=== PATIENT | female | born 1960 | race Caucasian/White ===

== ENCOUNTER → 2017-01-22 | Outpatient (CLI) | payer BC ==
--- NOTE | 2017-01-23 10:20 | MM ---
Reason for exam: screening (asymptomatic). Last mammogram was performed 1 year and 2 months ago. History: Patient has history of other cancer at age 35. Family history of breast cancer in grandmother. Benign US left CoreBiopsy of the left breast, January 31, 2007. Physical Findings: A clinical breast exam by your physician is recommended on an annual basis and results should be correlated with mammographic findings. MG Screening Mammo w CAD Bilateral CC and MLO view(s) were taken. Prior study comparison: November 09, 2015, bilateral MG screening mammo w CAD. April 08, 2008, bilateral diagnostic digital mammog. The breast tissue is heterogeneously dense. This may lower the sensitivity of mammography. There is chronic nodularity in the right breast. No significant changes when compared with prior studies. ASSESSMENT: Benign, BI-RAD 2 RECOMMENDATION: Routine screening mammogram of both breasts in 1 year.
== END | disposition home or self-care (01) ==
LOC: RADMAMWWP 08:43
PROVIDERS: ATTEND Family Medicine
DX: Z12.31 Encounter for screening mammogram for malignant neoplasm of breast (principal)

== ENCOUNTER → 2018-01-29 | Outpatient (CLI) | payer BC ==
--- NOTE | 2018-01-30 10:44 | MM ---
Reason for exam: screening (asymptomatic). Last mammogram was performed 1 year ago. History: Patient has history of other cancer at age 35. Family history of breast cancer in grandmother. Benign US left CoreBiopsy of the left breast, January 31, 2007. Physical Findings: A clinical breast exam by your physician is recommended on an annual basis and results should be correlated with mammographic findings. MG Screening Mammo w CAD Bilateral CC and MLO view(s) were taken. Prior study comparison: January 22, 2017, bilateral MG screening mammo w CAD. November 09, 2015, bilateral MG screening mammo w CAD. The breast tissue is heterogeneously dense. This may lower the sensitivity of mammography. Previous mammotome biopsy in the left breast. No significant changes when compared with prior studies. ASSESSMENT: Benign, BI-RAD 2 RECOMMENDATION: Routine screening mammogram of both breasts in 1 year.
== END | disposition home or self-care (01) ==
LOC: RADMAMWWP 14:45
PROVIDERS: ATTEND Family Medicine
DX: Z12.31 Encounter for screening mammogram for malignant neoplasm of breast (principal)
CPT/HCPCS: 77067

== ENCOUNTER → 2019-02-04 | Outpatient (CLI) | payer BC ==
--- NOTE | 2019-02-04 09:42 | MM ---
Reason for exam: screening (asymptomatic). Last mammogram was performed 1 year ago. History: Patient has history of other cancer at age 35. Family history of breast cancer in grandmother. Benign US left CoreBiopsy of the left breast, January 31, 2007. Physical Findings: A clinical breast exam by your physician is recommended on an annual basis and results should be correlated with mammographic findings. MG Screening Mammo w CAD Bilateral CC and MLO view(s) were taken. Prior study comparison: January 29, 2018, bilateral MG screening mammo w CAD. January 22, 2017, bilateral MG screening mammo w CAD. The breast tissue is heterogeneously dense. This may lower the sensitivity of mammography. Previous mammotome biopsy in the left breast. There is no discrete abnormality. ASSESSMENT: Benign, BI-RAD 2 RECOMMENDATION: Routine screening mammogram of both breasts in 1 year.
--- NOTE | 2019-02-04 11:58 | BD ---
EXAMINATION TYPE: Axial Bone Density DATE OF EXAM: 02/04/2019 COMPARISON: NONE CLINICAL HISTORY: Screening for osteoporosis Height: 64.5 Weight: 165.4 FRAX RISK QUESTIONS: Alcohol (3 or more units per day): no Family History (Parent hip fracture): no Glucocorticoids (More than 3mos): no (Ex: prednisone, prednisolone, methylprednisolone, dexamethasone, and hydrocortisone). History of Fracture in Adulthood: yes Secondary Osteoporosis: 1. Type 1 Diabetes: no 2. Hyperthyroidism: no 3. Menopause before 45: no 4. Malnutrition: no 5. Chronic liver disease: no Rheumatoid Arthritis: no Current Tobacco Use: no RISK FACTORS HISTORY OF: Family History of Osteoporosis: yes - mother Active: sometimes Diet low in dairy products/other sources of calcium: yes Postmenopausal woman: age 46 MEDICATIONS: omeprazole, amlodipine, vitamins Additional History: EXAM MEASUREMENTS: Bone mineral densitometry was performed using the [employer] System. Bone mineral density as measured about the Lumbar spine is: ----- L1-L4(G/cm2): 0.992 T Score Values are as follows: ----- L2: -1.9 ----- L3: -1.1 ----- L4: -1.4 ----- L1-L4: -1.6 Bone mineral density : baseline Bone mineral density about the R hip (g/cm2): 0.816 Bone mineral density about the L hip (g/cm2): 0.752 T Score values are as follows: -----R Neck: -1.6 -----L Neck: -2.1 -----R Total: -1.3 -----L Total: -1.7 Bone mineral density : baseline IMPRESSION: Osteopenia (T Score between -2.5 and -1). There is slightly increased risk of fracture and the patient may be considered for treatment. Re-Screen 2-5 years. NOTE: T-SCORE=SD OF THE YOUNG ADULT MEAN.
== END | disposition home or self-care (01) ==
LOC: RADMAMWWP 06:50
PROVIDERS: ATTEND Family Medicine
DX: Z12.31 Encounter for screening mammogram for malignant neoplasm of breast (principal); M85.88 Other specified disorders of bone density and structure, other site
CPT/HCPCS: 77067; 77080

== ENCOUNTER 2019-06-25 16:18 | Observation (INO) | payer BC ==
[2019-06-25] MEDS ORDERED: ONDANSETRON 4 MG/2 ML VIAL IVP STA (16:52)
[2019-06-25] MEDS ORDERED: SODIUM CHLORIDE 0.9% 500 ML 500 ML IV STA (16:52)
[2019-06-25] MEDS ORDERED: SODIUM CHLORIDE 0.9% 1,000 ML IV STA ×2 (16:52)
[2019-06-25] MEDS ORDERED: PANTOPRAZOLE 40 MG/10 ML VIAL IVP STA (16:54)
--- NOTE | 2019-06-25 16:58 | ED ---
Nausea/Vomiting/Diarrhea HPI - General Chief complaint: Nausea/Vomiting/Diarrhea Stated complaint: Vomiting, fatigue Time Seen by Provider: 06/25/19 16:26 Source: patient, RN notes reviewed, old records reviewed Mode of arrival: ambulatory Limitations: no limitations - History of Present Illness Initial comments: This is a 59-year-old female the ER for evaluation patient resents today for evaluation regards to nausea vomiting abdominal pain and diarrhea. Significant persistent diarrhea without blood. She has no fevers and chills but no documented fever. Patient is 5 days returned from a 12 day trip to [place]. She did go through [facility] travel shots as well as probiotics on her travel itinerary. She never took antibiotics. Noted also trip to get sick. Otherwise patient has no complaints. MD complaint: nausea, vomiting, diarrhea, abdominal pain, other (Recent travel history to [place]) -: days(s) (5) Description of Vomiting: food contents, watery Description of Diarrhea: water Associated Abdominal Pain: Yes Location: diffuse Severity: mild Severity scale (1-10): 3 Quality: cramping Consistency: colicky Improves with: none Worsens with: none Context: foreign travel Associated Symptoms: fever/chills, loss of appetite, malaise, nausea/vomiting, weakness - Related Data Home Medications Medication Instructions Recorded Confirmed Calcium Carbonate [Tums] 1,000 mg PO TID PRN 12/15/15 06/25/19 L.acidoph,Paracasei, B.lactis 1 cap PO TID 12/15/15 06/25/19 [Probiotic] Cholecalciferol [Vitamin D3 (25 1,000 unit PO DAILY 06/25/19 06/25/19 Mcg = 1000 Iu)] Krill Oil 500 mg PO DAILY 06/25/19 06/25/19 Magnesium 200 mg PO DAILY 06/25/19 06/25/19 Niacin 500 mg PO DAILY 06/25/19 06/25/19 Omeprazole 20 mg PO DAILY 06/25/19 06/25/19 Phytonadione [Vitamin K] 5 mg PO DAILY 06/25/19 06/25/19 Ubidecarenone [Co Q-10] 100 mg PO DAILY 06/25/19 06/25/19 Vitamin B Complex 1 cap PO DAILY 06/25/19 06/25/19 amLODIPine BESYLATE [Norvasc] 2.5 mg PO DAILY 06/25/19 06/25/19 Allergies Allergy/AdvReac Type Severity Reaction Status Date / Time No Known Allergies Allergy Verified 06/25/19 17:18 Review of Systems ROS Statement: Those systems with pertinent positive or pertinent negative responses have been documented in the HPI. ROS Other: All systems not noted in ROS Statement are negative. Past Medical History Past Medical History: Hypertension Additional Past Medical History / Comment(s): melanoma 20yrs ago, History of Any Multi-Drug Resistant Organisms: None Reported Past Surgical History: Bladder Surgery, Cholecystectomy, Hysterectomy Additional Past Surgical History / Comment(s): Left ooperectomy, partial hyst. Past Anesthesia/Blood Transfusion Reactions: No Reported Reaction Past Psychological History: No Psychological Hx Reported Smoking Status: Former smoker Past Alcohol Use History: None Reported Past Drug Use History: None Reported - Past Family History Mother Family Medical History: COPD Father Family Medical History: Myocardial Infarction (NH) General Exam Limitations: no limitations General appearance: alert, in no apparent distress Head exam: Present: atraumatic, normocephalic, normal inspection Eye exam: Present: normal appearance, EOMI. Absent: scleral icterus, conjunctival injection, periorbital swelling ENT exam: Present: normal exam, mucous membranes moist Neck exam: Present: normal inspection. Absent: tenderness, meningismus, lymphadenopathy Respiratory exam: Present: normal lung sounds bilaterally. Absent: respiratory distress, wheezes, rales, rhonchi, stridor Cardiovascular Exam: Present: regular rate, normal rhythm, normal heart sounds. Absent: systolic murmur, diastolic murmur, rubs, gallop, clicks GI/Abdominal exam: Present: soft, normal bowel sounds. Absent: distended, tenderness, guarding, rebound, rigid Extremities exam: Present: normal inspection, full ROM, normal capillary refill. Absent: tenderness, pedal edema, joint swelling, calf tenderness Back exam: Present: normal inspection Neurological exam: Present: alert, oriented X3, CN II-XII intact Psychiatric exam: Present: normal affect, normal mood Skin exam: Present: warm, dry, intact, normal color. Absent: rash Course Vital Signs 06/25/19 16:21 Temperature 98.3 F Pulse Rate 84 Respiratory 20 Rate Blood Pressure 149/96 O2 Sat by Pulse 99 Oximetry - Reevaluation(s) Reevaluation #1: 06/25/19 16:58 Medical records reviewed Reevaluation #2: 06/25/19 20:17 A she is mildly symptomatically improved - Consultations Consultation #1: hugo with EM media consultant, agreed for admission Medical Decision Making - Medical Decision Making 89 female the ER with persistent nausea vomiting diarrhea after treatment. Patient will be admitted for hydration and symptom management treatment of urinary tract infection - Lab Data Result diagrams: 06/25/19 17:10 06/25/19 17:10 Lab Results 06/25/19 06/25/19 06/25/19 Range/Units 17:10 17:10 17:10 WBC 10.4 (3.8-10.6) k/uL RBC 6.01 H (3.80-5.40) m/uL Hgb 18.6 H (11.4-16.0) gm/dL Hct 52.0 H (34.0-46.0) % MCV 86.5 (80.0-100.0) fL MCH 30.9 (25.0-35.0) pg MCHC 35.7 (31.0-37.0) g/dL RDW 12.6 (11.5-15.5) % Plt Count 289 (150-450) k/uL Neutrophils % 63 % Lymphocytes % 17 % Monocytes % 11 % Eosinophils % 1 % Basophils % 2 % Neutrophils # 6.6 (1.3-7.7) k/uL Lymphocytes # 1.8 (1.0-4.8) k/uL Monocytes # 1.1 H (0-1.0) k/uL Eosinophils # 0.1 (0-0.7) k/uL Basophils # 0.2 (0-0.2) k/uL ESR 47 H (0-20) mm/hr Sodium 136 L (137-145) mmol/L Potassium 3.8 (3.5-5.1) mmol/L Chloride 96 L (98-107) mmol/L Carbon Dioxide 19 L (22-30) mmol/L Anion Gap 21 mmol/L BUN 20 H (7-17) mg/dL Creatinine 0.57 (0.52-1.04) mg/dL Est GFR (CKD-EPI)AfAm >90 (>60 ml/min/1.73 sqM) Est GFR (CKD-EPI)NonAf >90 (>60 ml/min/1.73 sqM) Glucose 119 H (74-99) mg/dL Plasma Lactic Acid Herve 1.2 (0.7-2.0) mmol/L Calcium 11.8 H (8.4-10.2) mg/dL Phosphorus 4.0 (2.5-4.5) mg/dL Magnesium 2.1 (1.6-2.3) mg/dL Total Bilirubin 1.6 H (0.2-1.3) mg/dL AST 38 H (14-36) U/L ALT 41 (9-52) U/L Alkaline Phosphatase 97 (38-126) U/L Lactate Dehydrogenase 675 H (313-618) U/L Creatine Kinase 68 (30-135) U/L C-Reactive Protein 40.0 H (<10.0) mg/L Total Protein 9.0 H (6.3-8.2) g/dL Albumin 4.9 (3.5-5.0) g/dL Urine Color Urine Appearance (Clear) Urine pH (5.0-8.0) Ur Specific [place] (1.001-1.035) Urine Protein (Negative) Urine Glucose (UA) (Negative) Urine Ketones (Negative) Urine Blood (Negative) Urine Nitrite (Negative) Urine Bilirubin (Negative) Urine Urobilinogen (<2.0) mg/dL Ur Leukocyte Esterase (Negative) Urine RBC (0-5) /hpf Urine WBC (0-5) /hpf Ur Squamous Epith Cells (0-4) /hpf Amorphous Sediment (None) /hpf Urine Bacteria (None) /hpf Hyaline Casts (0-2) /lpf Urine Mucus (None) /hpf C. difficile (EIA) Intrp (Negative) 06/25/19 06/25/19 Range/Units 17:58 17:58 WBC (3.8-10.6) k/uL RBC (3.80-5.40) m/uL Hgb (11.4-16.0) gm/dL Hct (34.0-46.0) % MCV (80.0-100.0) fL MCH (25.0-35.0) pg MCHC (31.0-37.0) g/dL RDW (11.5-15.5) % Plt Count (150-450) k/uL Neutrophils % % Lymphocytes % % Monocytes % % Eosinophils % % Basophils % % Neutrophils # (1.3-7.7) k/uL Lymphocytes # (1.0-4.8) k/uL Monocytes # (0-1.0) k/uL Eosinophils # (0-0.7) k/uL Basophils # (0-0.2) k/uL ESR (0-20) mm/hr Sodium (137-145) mmol/L Potassium (3.5-5.1) mmol/L Chloride (98-107) mmol/L Carbon Dioxide (22-30) mmol/L Anion Gap mmol/L BUN (7-17) mg/dL Creatinine (0.52-1.04) mg/dL Est GFR (CKD-EPI)AfAm (>60 ml/min/1.73 sqM) Est GFR (CKD-EPI)NonAf (>60 ml/min/1.73 sqM) Glucose (74-99) mg/dL Plasma Lactic Acid Herve (0.7-2.0) mmol/L Calcium (8.4-10.2) mg/dL Phosphorus (2.5-4.5) mg/dL Magnesium (1.6-2.3) mg/dL Total Bilirubin (0.2-1.3) mg/dL AST (14-36) U/L ALT (9-52) U/L Alkaline Phosphatase (38-126) U/L Lactate Dehydrogenase (313-618) U/L Creatine Kinase (30-135) U/L C-Reactive Protein (<10.0) mg/L Total Protein (6.3-8.2) g/dL Albumin (3.5-5.0) g/dL Urine Color Yellow Urine Appearance Cloudy H (Clear) Urine pH 6.5 (5.0-8.0) Ur Specific [place] 1.014 (1.001-1.035) Urine Protein Trace H (Negative) Urine Glucose (UA) Negative (Negative) Urine Ketones 3+ H (Negative) Urine Blood Trace H (Negative) Urine Nitrite Negative (Negative) Urine Bilirubin Negative (Negative) Urine Urobilinogen <2.0 (<2.0) mg/dL Ur Leukocyte Esterase Large H (Negative) Urine RBC 5 (0-5) /hpf Urine WBC 53 H (0-5) /hpf Ur Squamous Epith Cells 7 H (0-4) /hpf Amorphous Sediment Rare H (None) /hpf Urine Bacteria Moderate H (None) /hpf Hyaline Casts 3 H (0-2) /lpf Urine Mucus Rare H (None) /hpf C. difficile (EIA) Intrp Negative (Negative) - Radiology Data Radiology results: report reviewed (CT head and pelvis is negative for acute disease), image reviewed Disposition Clinical Impression: Urinary tract infection, Dehydration, Gastroenteritis Disposition: ADMITTED IP TO THIS [facility] Condition: Undetermined Is patient prescribed a controlled substance at d/c from ED?: No Referrals: Levi Stovall III, MD [Primary Care Provider] - 1-2 days
[2019-06-25 17:46] LABS: ALT 41 U/L (9-52); AST 38 U/L (14-36); African American GFR (CKD) >90 (>60 ml/min/1.73 sqM); Albumin 4.9 g/dL (3.5-5.0); Alkaline Phosphatase 97 U/L (38-126); Anion Gap 21 mmol/L; Blood Urea Nitrogen 20 mg/dL (7-17); Calcium 11.8 mg/dL (8.4-10.2); Carbon Dioxide 19 mmol/L (22-30); Chloride 96 mmol/L (98-107); Creatine Kinase 68 U/L (30-135); Glucose 119 mg/dL (74-99); LDH 675 U/L (313-618); Magnesium 2.1 mg/dL (1.6-2.3); Potassium 3.8 mmol/L (3.5-5.1); Sodium 136 mmol/L (137-145); Total Bilirubin 1.6 mg/dL (0.2-1.3)
[2019-06-25 18:15] LABS: Basophils # (A) 0.2 k/uL (0-0.2); Basophils % (A) 2 %; Eosinophils # (A) 0.1 k/uL (0-0.7); Eosinophils % (A) 1 %; HGB 18.6 gm/dL (11.4-16.0); Lymphocytes # (A) 1.8 k/uL (1.0-4.8); Lymphocytes % (A) 17 %; MCH 30.9 pg (25.0-35.0); MCHC 35.7 g/dL (31.0-37.0); MCV 86.5 fL (80.0-100.0); Mean Platelet Volume 8.5; Monocytes # (A) 1.1 k/uL (0-1.0); Monocytes % (A) 11 %; Neutrophils # (A) 6.6 k/uL (1.3-7.7); Neutrophils % (A) 63 %; Platelet Count 289 k/uL (150-450); RBC 6.01 m/uL (3.80-5.40); RDW 12.6 % (11.5-15.5); WBC 10.4 k/uL (3.8-10.6)
[2019-06-25 18:34] LABS: Amorphous Sediment,Urine Rare /hpf; Appearance,Urine Cloudy (Clear); Bacteria,Urine Moderate /hpf; Bilirubin,Urine Negative (Negative); Blood,Urine Trace (Negative); Color,Urine Yellow; Glucose,Urine (UA) Negative (Negative); Hyaline Casts,Urine 3 /lpf (0-2); Ketones,Urine 3+ (Negative); Leukocyte Esterase,Urine Large (Negative); Mucus,Urine Rare /hpf; Nitrite,Urine Negative (Negative); PH, Urine 6.5 (5.0-8.0); Protein,Urine Trace (Negative); RBC,Urine 5 /hpf (0-5); Specific Gravity,Urine 1.014 (1.001-1.035); Squamous Epithelial Cell,Urine 7 /hpf (0-4); Urobilinogen,Urine <2.0 mg/dL (<2.0); WBC,Urine 53 /hpf (0-5)
[2019-06-25 18:54] LABS: Erythrocyte Sedimentation Rate 47 mm/hr (0-20)
[2019-06-25] MEDS: SODIUM CHLORIDE 0.9% 1,000 ML IV SCH (20:43)
[2019-06-25] MEDS: SODIUM CHLORIDE 0.9% 500 ML 500 ML IV SCH (20:44)
[2019-06-25 21:32] VITALS: BMI 28.3
[2019-06-26] MEDS: SODIUM CHLORIDE 0.9% 500 ML 500 ML IV SCH ×2 (01:29→05:53)
[2019-06-26] MEDS: SODIUM CHLORIDE 0.9% 1,000 ML IV SCH ×3 (05:53→20:54)
--- NOTE | 2019-06-26 08:53 | P.CONS ---
History of Present Illness - Reason for Consult Consult date: 06/26/19 Nausea vomiting diarrhea - History of Present Illness This is a 59-year-old female who gives history of traveling to [place] for 12 day trip and has been back for the past 6 days. On her travel returning home, she started feeling ill. She complains of fatigue, cold sweats, may be some fever at the beginning but resolved. She complains of nausea and diarrhea without blood. No abdominal pain. She states she traveled with the group and one other person had upper respiratory symptoms but no one else with her type of symptoms. She does complain of a little burning with urination yesterday but none now. She complains of decreased appetite and this morning she ate her first real meal. She complains of her skin feeling sore. Since transfer to her room on the fourth floor, patient has had 4 watery stools that are yellow in color. Patient came into [facility] emergency center for eval uation. She was found to be afebrile, WBC 10.4, CO2 19, BUN 20, creatinine 0.57. Lactic acid 1.2, CRP 40, albumin 4.9, LDH 675. AST 38. C. difficile toxin negative. Urinalysis was leukoesterase large, WBC 53, bacteria moderate. Stool culture blood culture and malaria testing were sent from the emergency center. CAT scan of the abdomen and pelvis with contrast has been obtained but report is currently pending. In the emergency center, patient received 2 L of IV fluid, Zofran and Protonix. Review of Systems Constitutional: Reports anorexia, Reports chills, Reports fatigue, Reports fever, Reports lethargy, Reports malaise, Reports poor appetite, Reports weakness Eyes: denies blurred vision, denies pain Ears, nose, mouth and throat: Denies dental pain, Denies mouth pain, Denies nasal congestion, Denies nasal discharge, Denies vertigo Cardiovascular: Denies chest pain, Denies decreased exercise tolerance, Denies dyspnea on exertion, Denies edema, Denies leg edema, Denies lightheadedness, Denies shortness of breath, Denies syncope Respiratory: Denies congestion, Denies cough, Denies cough with sputum, Denies dyspnea, Denies excessive sputum, Denies hemoptysis, Denies home oxygen, Denies wheezing Gastrointestinal: Reports change in bowel habits, Reports diarrhea, Reports loss of appetite, Reports nausea, Denies abdominal pain, Denies vomiting Genitourinary: Reports dysuria, Denies hematuria Musculoskeletal: Denies muscle weakness, Denies myalgias Integumentary: Denies pruritus, Denies rash, Denies wounds Neurological: Denies change in mentation, Denies change in speech, Denies numbness, Denies weakness Psychiatric: Denies anxiety, Denies depression Endocrine: Denies fatigue, Denies weight change Past Medical History Past Medical History: Hypertension Additional Past Medical History / Comment(s): melanoma 25yrs ago status post resection History of Any Multi-Drug Resistant Organisms: None Reported Past Surgical History: Bladder Surgery, Cholecystectomy, Hysterectomy Additional Past Surgical History / Comment(s): Left ooperectomy, partial hyst orvarian cyst removed when 17 years old Past Anesthesia/Blood Transfusion Reactions: No Reported Reaction Past Psychological History: No Psychological Hx Reported Smoking Status: Former smoker Past Alcohol Use History: None Reported Additional Past Alcohol Use History / Comment(s): Patient was a smoker for brief period only and quit 25 years ago. No marijuana, illicit drug use, alcohol use. She lives at home with her . No pets. 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 The last time was in October. She also enjoys the beach. Past Drug Use History: None Reported - Past Family History Mother Family Medical History: COPD Father Family Medical History: Myocardial Infarction ([place]) Medications and Allergies Home Medications Medication Instructions Recorded Confirmed Type Calcium Carbonate [Tums] 1,000 mg PO TID PRN 12/15/15 06/25/19 History L.acidoph,Paracasei, B.lactis 1 cap PO TID 12/15/15 06/25/19 History [Probiotic] Cholecalciferol [Vitamin D3 (25 1,000 unit PO DAILY 06/25/19 06/25/19 History Mcg = 1000 Iu)] Krill Oil 500 mg PO DAILY 06/25/19 06/25/19 History Magnesium 200 mg PO DAILY 06/25/19 06/25/19 History Niacin 500 mg PO DAILY 06/25/19 06/25/19 History Omeprazole 20 mg PO DAILY 06/25/19 06/25/19 History Phytonadione [Vitamin K] 5 mg PO DAILY 06/25/19 06/25/19 History Ubidecarenone [Co Q-10] 100 mg PO DAILY 06/25/19 06/25/19 History Vitamin B Complex 1 cap PO DAILY 06/25/19 06/25/19 History amLODIPine BESYLATE [Norvasc] 2.5 mg PO DAILY 06/25/19 06/25/19 History Allergies Allergy/AdvReac Type Severity Reaction Status Date / Time No Known Allergies Allergy Verified 06/25/19 17:18 Physical Exam Vitals: Vital Signs Temp Pulse Pulse Resp BP BP Pulse Ox 06/26/19 07:29 98.1 F 56 L 16 111/71 98 06/25/19 22:00 97.5 F L 66 16 116/76 100 06/25/19 21:07 74 18 134/94 96 06/25/19 16:21 98.3 F 84 20 149/96 99 Intake and Output 06/25/19 06/26/19 06/26/19 22:59 06:59 14:59 Other: # Voids 1 2 Weight 74.843 kg Gen: This is a 59-year-old female. Patient is resting in bed and appears to be comfortable and in no acute distress. HEENT: Head is atraumatic, normocephalic. Pupils equal, round. Sclerae is anicteric. Oral mucous membranes are moist. No thrush noted. Dentition is in good order. No oral pharyngeal edema or erythema. NECK: Supple. No JVD. No lymphadenopathy. No thyromegaly. LUNGS: Clear to auscultation. No wheezes or rhonchi. No intercostal retractions. HEART: Regular rate and rhythm. No murmur. ABDOMEN: Soft. Bowel sounds are present. No masses. No tenderness. EXTREMITIES: No pedal edema. No calf tenderness. Dorsalis pedis +2 bilaterally. NEUROLOGICAL: Patient is awake, alert and oriented x3. Cranial nerves 2 through 12 are grossly intact. Results Results: Laboratory Results WBC 10.4 k/uL (3.8-10.6) 06/25/19 17:10 RBC 6.01 m/uL (3.80-5.40) H 06/25/19 17:10 Hgb 18.6 gm/dL (11.4-16.0) H 06/25/19 17:10 Hct 52.0 % (34.0-46.0) H 06/25/19 17:10 MCV 86.5 fL (80.0-100.0) 06/25/19 17:10 MCH 30.9 pg (25.0-35.0) 06/25/19 17:10 MCHC 35.7 g/dL (31.0-37.0) 06/25/19 17:10 RDW 12.6 % (11.5-15.5) 06/25/19 17:10 Plt Count 289 k/uL (150-450) 06/25/19 17:10 Neutrophils % 63 % 06/25/19 17:10 Lymphocytes % 17 % 06/25/19 17:10 Monocytes % 11 % 06/25/19 17:10 Eosinophils % 1 % 06/25/19 17:10 Basophils % 2 % 06/25/19 17:10 Neutrophils # 6.6 k/uL (1.3-7.7) 06/25/19 17:10 Lymphocytes # 1.8 k/uL (1.0-4.8) 06/25/19 17:10 Monocytes # 1.1 k/uL (0-1.0) H 06/25/19 17:10 Eosinophils # 0.1 k/uL (0-0.7) 06/25/19 17:10 Basophils # 0.2 k/uL (0-0.2) 06/25/19 17:10 ESR 47 mm/hr (0-20) H 06/25/19 17:10 Sodium 136 mmol/L (137-145) L 06/25/19 17:10 Potassium 3.8 mmol/L (3.5-5.1) 06/25/19 17:10 Chloride 96 mmol/L (98-107) L 06/25/19 17:10 Carbon Dioxide 19 mmol/L (22-30) L 06/25/19 17:10 Anion Gap 21 mmol/L 06/25/19 17:10 BUN 20 mg/dL (7-17) H 06/25/19 17:10 Creatinine 0.57 mg/dL (0.52-1.04) 06/25/19 17:10 Est GFR (CKD-EPI)AfAm >90 (>60 ml/min/1.73 sqM) 06/25/19 17:10 Est GFR (CKD-EPI)NonAf >90 (>60 ml/min/1.73 sqM) 06/25/19 17:10 Glucose 119 mg/dL (74-99) H 06/25/19 17:10 Plasma Lactic Acid Herve 1.2 mmol/L (0.7-2.0) 06/25/19 17:10 Calcium 11.8 mg/dL (8.4-10.2) H 06/25/19 17:10 Phosphorus 4.0 mg/dL (2.5-4.5) 06/25/19 17:10 Magnesium 2.1 mg/dL (1.6-2.3) 06/25/19 17:10 Total Bilirubin 1.6 mg/dL (0.2-1.3) H 06/25/19 17:10 AST 38 U/L (14-36) H 06/25/19 17:10 ALT 41 U/L (9-52) 06/25/19 17:10 Alkaline Phosphatase 97 U/L (38-126) 06/25/19 17:10 Lactate Dehydrogenase 675 U/L (313-618) H 06/25/19 17:10 Creatine Kinase 68 U/L (30-135) 06/25/19 17:10 C-Reactive Protein 40.0 mg/L (<10.0) H 06/25/19 17:10 Total Protein 9.0 g/dL (6.3-8.2) H 06/25/19 17:10 Albumin 4.9 g/dL (3.5-5.0) 06/25/19 17:10 Urine Color Yellow 06/25/19 17:58 Urine Appearance Cloudy (Clear) H 06/25/19 17:58 Urine pH 6.5 (5.0-8.0) 06/25/19 17:58 Ur Specific [place] 1.014 (1.001-1.035) 06/25/19 17:58 Urine Protein Trace (Negative) H 06/25/19 17:58 Urine Glucose (UA) Negative (Negative) 06/25/19 17:58 Urine Ketones 3+ (Negative) H 06/25/19 17:58 Urine Blood Trace (Negative) H 06/25/19 17:58 Urine Nitrite Negative (Negative) 06/25/19 17:58 Urine Bilirubin Negative (Negative) 06/25/19 17:58 Urine Urobilinogen <2.0 mg/dL (<2.0) 06/25/19 17:58 Ur Leukocyte Esterase Large (Negative) H 06/25/19 17:58 Urine RBC 5 /hpf (0-5) 06/25/19 17:58 Urine WBC 53 /hpf (0-5) H 06/25/19 17:58 Ur Squamous Epith Cells 7 /hpf (0-4) H 06/25/19 17:58 Amorphous Sediment Rare /hpf (None) H 06/25/19 17:58 Urine Bacteria Moderate /hpf (None) H 06/25/19 17:58 Hyaline Casts 3 /lpf (0-2) H 06/25/19 17:58 Urine Mucus Rare /hpf (None) H 06/25/19 17:58 C. difficile (EIA) Intrp Negative (Negative) 06/25/19 17:58 CBC & Chem 7: 06/25/19 17:10 06/25/19 17:10 Labs: Abnormal Lab Results - Last 24 Hours (Table) 06/25/19 06/25/19 06/25/19 Range/Units 17:10 17:10 17:58 RBC 6.01 H (3.80-5.40) m/uL Hgb 18.6 H (11.4-16.0) gm/dL Hct 52.0 H (34.0-46.0) % Monocytes # 1.1 H (0-1.0) k/uL ESR 47 H (0-20) mm/hr Sodium 136 L (137-145) mmol/L Chloride 96 L (98-107) mmol/L Carbon Dioxide 19 L (22-30) mmol/L BUN 20 H (7-17) mg/dL Glucose 119 H (74-99) mg/dL Calcium 11.8 H (8.4-10.2) mg/dL Total Bilirubin 1.6 H (0.2-1.3) mg/dL AST 38 H (14-36) U/L Lactate Dehydrogenase 675 H (313-618) U/L C-Reactive Protein 40.0 H (<10.0) mg/L Total Protein 9.0 H (6.3-8.2) g/dL Urine Appearance Cloudy H (Clear) Urine Protein Trace H (Negative) Urine Ketones 3+ H (Negative) Urine Blood Trace H (Negative) Ur Leukocyte Esterase Large H (Negative) Urine WBC 53 H (0-5) /hpf Ur Squamous Epith Cells 7 H (0-4) /hpf Amorphous Sediment Rare H (None) /hpf Urine Bacteria Moderate H (None) /hpf Hyaline Casts 3 H (0-2) /lpf Urine Mucus Rare H (None) /hpf Microbiology - Last 24 Hours (Table) 06/25/19 17:58 Stool Culture - Preliminary Stool Assessment and Plan Plan: This is a 59-year-old female with recent travel to [place] presenting with fatigue and diarrhea along with nausea. Stool culture has been obtained. We will also add ova and parasite complete for international traveler. Malaria parasite blood smear is pending. C. C. difficile toxin has been negative. CAT scan of the abdomen and pelvis with contrast has been obtained but report is currently pending. Patient has significant improvement in general after IV hydration. No antibiotics currently in place. Continue supportive care. Further recommendations as patient versus. The above dictated assessment and findings were discussed with Dr. Ronquillo. The impression and plan of care have been directed as dictated. Courtney Alamo nurse practitioner acting as scribe for Dr. Ronquillo.
[2019-06-26] MEDS ORDERED: amLODIPine 2.5 MG TAB PO SCH (09:00)
[2019-06-26] MEDS: PANTOPRAZOLE 40 MG/10 ML VIAL IV SCH (09:11)
[2019-06-26 11:43] LABS: Malarial Thin Smear None seen (None seen)
--- NOTE | 2019-06-26 12:37 | CT ---
EXAMINATION TYPE: CT abdomen pelvis w con DATE OF EXAM: 06/25/2019 COMPARISON: None HISTORY: Vomiting and nausea CT DLP: mGycm Automated exposure control for dose reduction was used. TECHNIQUE: Helical acquisition of images was performed from the lung bases through the pelvis. CONTRAST: The contrast was Isovue 100 mL. FINDINGS: Lung bases are clear. There is no pleural effusion. There is some fatty infiltration of the liver. Th ere is small hiatal hernia. Spleen pancreas appear normal. There are clips from cholecystectomy. Ther e is no adrenal mass. Kidneys show satisfactory contrast opacification. There is no hydronephrosis. T here is diverticulum of the second part of the duodenum. Ureters are not dilated. Bladder distends sm oothly. There a few sigmoid diverticula. There is no sign of diverticulitis. There is no mesenteric e radha. There is no ascites or free air. Bony structures are intact. There are a few pericecal lymph no tsering. Appendix within normal limits. IMPRESSION: DUODENAL DIVERTICULUM. FATTY INFILTRATION OF THE LIVER. MILD SIGMOID DIVERTICULOSIS WITHOUT DIVERTICULITIS.
--- NOTE | 2019-06-26 15:23 | P.HPIM ---
History of Present Illness Patient is a very pleasant 15-year-old female had a recent travel lap to [place] which is apparently trip came back or 6 days ago started feeling fatigued on the flight itself started having diarrhea after that multiple episodes a day about 6 episodes last evening about 2 episodes today morning which is nonbloody and non- mucousy. Patient denied any obvious fever had occasional chills. Patient denied any cough patient denied any nausea vomiting did have decreased appetite. Patient denied any UTI symptoms. Stool was obtain for culture, toxins, parasites, Entamoeba. Patient is well feeling much better after IV fluids patient is presently on IV fluids. Infectious disease evaluated the patient and patient is being evaluated for pulmonary area with the thick blood smear Review of Systems REVIEW OF SYSTEMS: CONSTITUTIONAL: No fever, no malaise, no fatigue. HEENT: No recent visual problems or hearing problems. Denied any sore throat. CARDIOVASCULAR: No chest pain, orthopnea, PND, no palpitations, no syncope. PULMONARY: No shortness of breath, no cough, no hemoptysis. GASTROINTESTINAL: As mentioned in HPI NEUROLOGICAL: No headaches, no weakness, no numbness. HEMATOLOGICAL: Denies any bleeding or petechiae. GENITOURINARY: Denies any burning micturition, frequency, or urgency. MUSCULOSKELETAL/RHEUMATOLOGICAL: Denies any joint pain, swelling, or any muscle pain. ENDOCRINE: Denies any polyuria or polydipsia. The rest of the 14-point review of systems is negative. Past Medical History Past Medical History: Hypertension Additional Past Medical History / Comment(s): melanoma 25yrs ago status post resection History of Any Multi-Drug Resistant Organisms: None Reported Past Surgical History: Bladder Surgery, Cholecystectomy, Hysterectomy Additional Past Surgical History / Comment(s): Left ooperectomy, partial hyst orvarian cyst removed when 17 years old Past Anesthesia/Blood Transfusion Reactions: No Reported Reaction Past Psychological History: No Psychological Hx Reported Smoking Status: Former smoker Past Alcohol Use History: None Reported Additional Past Alcohol Use History / Comment(s): Patient was a smoker for brief period only and quit 25 years ago. No marijuana, illicit drug use, alcohol use. She lives at home with her . No pets. 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 The last time was in October. She also enjoys the beach. Past Drug Use History: None Reported - Past Family History Mother Family Medical History: COPD Father Family Medical History: Myocardial Infarction ([place]) Medications and Allergies Home Medications Medication Instructions Recorded Confirmed Type Calcium Carbonate [Tums] 1,000 mg PO TID PRN 12/15/15 06/25/19 History L.acidoph,Paracasei, B.lactis 1 cap PO TID 12/15/15 06/25/19 History [Probiotic] Cholecalciferol [Vitamin D3 (25 1,000 unit PO DAILY 06/25/19 06/25/19 History Mcg = 1000 Iu)] Krill Oil 500 mg PO DAILY 06/25/19 06/25/19 History Magnesium 200 mg PO DAILY 06/25/19 06/25/19 History Niacin 500 mg PO DAILY 06/25/19 06/25/19 History Omeprazole 20 mg PO DAILY 06/25/19 06/25/19 History Phytonadione [Vitamin K] 5 mg PO DAILY 06/25/19 06/25/19 History Ubidecarenone [Co Q-10] 100 mg PO DAILY 06/25/19 06/25/19 History Vitamin B Complex 1 cap PO DAILY 06/25/19 06/25/19 History amLODIPine BESYLATE [Norvasc] 2.5 mg PO DAILY 06/25/19 06/25/19 History Allergies Allergy/AdvReac Type Severity Reaction Status Date / Time No Known Allergies Allergy Verified 06/25/19 17:18 Physical Exam Vitals: Vital Signs Temp Pulse Pulse Resp BP BP Pulse Ox 06/26/19 12:56 97.5 F L 65 16 137/85 96 06/26/19 07:29 98.1 F 56 L 16 111/71 98 06/25/19 22:00 97.5 F L 66 16 116/76 100 06/25/19 21:07 74 18 134/94 96 06/25/19 16:21 98.3 F 84 20 149/96 99 Intake and Output 06/26/19 06/26/19 06/26/19 06:59 14:59 22:59 Intake Total 740 Balance 740 Intake: Oral 740 Other: # Voids 2 3 # Bowel Movements 1 PHYSICAL EXAMINATION: GENERAL: The patient is alert and oriented x3, not in any acute distress. Well developed, well nourished. HEENT: Pupils are round and equally reacting to light. EOMI. No scleral icterus. No conjunctival pallor. Normocephalic, atraumatic. No pharyngeal erythema. No thyromegaly. CARDIOVASCULAR: S1 and S2 present. No murmurs, rubs, or gallops. PULMONARY: Chest is clear to auscultation, no wheezing or crackles. ABDOMEN: Soft, nontender, nondistended, normoactive bowel sounds. No palpable organomegaly. MUSCULOSKELETAL: No joint swelling or deformity. EXTREMITIES: No cyanosis, clubbing, or pedal edema. NEUROLOGICAL: Gross neurological examination did not reveal any focal deficits. SKIN: No rashes. Results CBC & Chem 7: 06/25/19 17:10 06/25/19 17:10 Labs: Abnormal Lab Results - Last 24 Hours (Table) 06/25/19 06/25/19 06/25/19 Range/Units 17:10 17:10 17:58 RBC 6.01 H (3.80-5.40) m/uL Hgb 18.6 H (11.4-16.0) gm/dL Hct 52.0 H (34.0-46.0) % Monocytes # 1.1 H (0-1.0) k/uL ESR 47 H (0-20) mm/hr Sodium 136 L (137-145) mmol/L Chloride 96 L (98-107) mmol/L Carbon Dioxide 19 L (22-30) mmol/L BUN 20 H (7-17) mg/dL Glucose 119 H (74-99) mg/dL Calcium 11.8 H (8.4-10.2) mg/dL Total Bilirubin 1.6 H (0.2-1.3) mg/dL AST 38 H (14-36) U/L Lactate Dehydrogenase 675 H (313-618) U/L C-Reactive Protein 40.0 H (<10.0) mg/L Total Protein 9.0 H (6.3-8.2) g/dL Urine Appearance Cloudy H (Clear) Urine Protein Trace H (Negative) Urine Ketones 3+ H (Negative) Urine Blood Trace H (Negative) Ur Leukocyte Esterase Large H (Negative) Urine WBC 53 H (0-5) /hpf Ur Squamous Epith Cells 7 H (0-4) /hpf Amorphous Sediment Rare H (None) /hpf Urine Bacteria Moderate H (None) /hpf Hyaline Casts 3 H (0-2) /lpf Urine Mucus Rare H (None) /hpf Microbiology - Last 24 Hours (Table) 06/25/19 17:58 Stool Culture - Preliminary Stool Thrombosis Risk Factor Assmnt - Choose All That Apply Any of the Below Risk Factors Present?: Yes Each Factor Represents 1 point: Age 41-60 years, Obesity (BMI >25) Other Risk Factors: No Other congenital or acquired thrombophilia - If yes, enter type in comment: No Thrombosis Risk Factor Assessment Total Risk Factor Score: 2 Thrombosis Risk Factor Assessment Level: Low Risk Assessment and Plan Plan: -Diarrhea: Patient is being evaluated for traveler's diarrhea this entry and parasitic infections appropriate tests were ordered possibly of miliary is low patient doesn't have any significant fever at this time. -Anion gap metabolic acidosis patient doesn't have a lactic acidosis etiology of Metabolic acidosis is not clear what appeared the basic metabolic profile tomorrow -Hypercalcemia under to hemoconcentration effect will recheck calcium levels again tomorrow -Asymptomatic bacteriuria -Hypertension -DVT prophylaxis. Early Ambulation
[2019-06-26] MEDS ORDERED: AZITHROMYCIN 500 MG in SODIUM CHLORIDE 0.9% 250 ML IVPB ONE (22:00)
[2019-06-26] MEDS ORDERED: LOPERAMIDE 2 MG CAP PO STA (23:04)
--- NOTE | 2019-06-26 23:04 | P.CON ---
Consult Note - . Consult date: 06/26/19 Assessment/Plan:: This is a 59-year-old female who gives history of traveling to [place] for 12 day trip and has been back for the past 6 days. On her travel returning home, she started feeling ill. She complains of fatigue, cold sweats, may be some fever at the beginning but resolved. She complains of nausea and diarrhea without blood. No abdominal pain. She states she traveled with the group and one other person had upper respiratory symptoms but no one else with her type of symptoms. She does complain of a little burning with urination yesterday but none now. She complains of decreased appetite and this morning she ate her firs t real meal. She complains of her skin feeling sore. Since transfer to her room on the fourth floor, patient has had 4 watery stools that are yellow in color. Patient came into [facility] emergency center for evaluation. She was found to be afebrile, WBC 10.4, CO2 19, BUN 20, creatinine 0.57. Lactic acid 1.2, CRP 40, albumin 4.9, LDH 675. AST 38. C. difficile toxin negative. Urinalysis was leukoesterase large, WBC 53, bacteria moderate. Stool culture blood culture and malaria testing were sent from the emergency center. CAT scan of the abdomen and pelvis with contrast has been obtained but report is currently pending. In the emergency center, patient received 2 L of IV fluid, Zofran and Protonix.Please see the consult note was dictated with nurse practitioner Mrs. Courtney Alamo. 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 She was with a small group of travelers and she was at home when he became ill. She relates that in the days that she was there she felt well and did not become ill until on the flight home. It is related she developed fever and abdominal pain which was not severe some crampy abdominal pain and multiple loose stools that were bilious in color. She became progressively dehydrated and ill in [place] presents to the emergency center where she was on evidence of leukocytosis as well as significant dehydration. With rehydration she's feeling considerably better but still having a bit of loose stool. Stool for parasite has been sent to the main laboratory and is pending. Malarial smears are negative. Given that the patient is not having ongoing fevers and infectious gastroenteritis is the likely etiology. Consequently azithromycin will be given. The dose of Imodium will also be offered to try to reduce the amount of stools. If she is improved she will be discharged home to complete a course of oral azithromycin and should have ongoing oral rehydration solution when she is home until she has further recovered. I reviewed evaluation, assessment and plan as dictated by nurse practitioner Mrs. Courtney Alamo.
[2019-06-26 23:50] VITALS: RESP 18; TEMP 98.1
[2019-06-27] MEDS: SODIUM CHLORIDE 0.9% 1,000 ML IV SCH ×2 (02:55→08:51)
[2019-06-27 06:10] VITALS: BP 108/68; PULSE 61
[2019-06-27 08:02] LABS: HCT 41.9 % (34.0-46.0); MCH 28.9 pg (25.0-35.0); MCHC 32.1 g/dL (31.0-37.0); MCV 90.1 fL (80.0-100.0); Platelet Count 275 k/uL (150-450); RBC 4.65 m/uL (3.80-5.40); RDW 12.8 % (11.5-15.5); WBC 7.7 k/uL (3.8-10.6)
[2019-06-27 08:11] LABS: HGB 13.4 gm/dL (11.4-16.0)
[2019-06-27 08:38] LABS: African American GFR (CKD) >90 (>60 ml/min/1.73 sqM); Anion Gap 6 mmol/L; Blood Urea Nitrogen 6 mg/dL (7-17); Calcium 8.6 mg/dL (8.4-10.2); Carbon Dioxide 26 mmol/L (22-30); Chloride 112 mmol/L (98-107); Glucose 112 mg/dL (74-99); Sodium 144 mmol/L (137-145)
[2019-06-27] MEDS: PANTOPRAZOLE 40 MG/10 ML VIAL IV SCH (08:50)
--- NOTE | 2019-06-27 11:07 | P.DS ---
Providers Date of admission: 06/25/19 20:16 Attending physician: Moises Lind Consults: 06/25/19 20:16 Consult Physician Routine Consulting Provider: Brandon Ronquillo Reason/Comments: NVD Do you want consulting provider notified?: Yes Primary care physician: Levi Reid [facility] Course: 59-year-old female had a recent travel lap to [place] which is apparently trip came back or 6 days ago started feeling fatigued on the flight itself started having diarrhea after that multiple episodes a day about 6 episodes last evening about 2 episodes today morning which is nonbloody and non-mucousy. Patient denied any obvious fever had occasional chills. Patient denied any cough patient denied any nausea vomiting did have decreased appetite. Patient denied any UTI symptoms. Stool was obtain for culture, toxins, parasites, Entamoeba. Patient is well feeling much better after IV fluids patient is presently on IV fluids. Infectious disease evaluated the patient and patient is being evaluated for pulmonary area with the thick blood smear. 06/27/2019 Patient is clinically doing well diarrhea improved, infectious disease is recommending azithromycin for infectious diarrhea. Patient will be discharged on 7 days of azithromycin along with as needed Imodium. Her dehydration significant improved with IV fluids and patient is feeling much better today. PHYSICAL EXAMINATION: GENERAL: The patient is alert and oriented x3, not in any acute distress. Well developed, well nourished. HEENT: Pupils are round and equally reacting to light. EOMI. No scleral icterus. No conjunctival pallor. Normocephalic, atraumatic. No pharyngeal erythema. No thyromegaly. CARDIOVASCULAR: S1 and S2 present. No murmurs, rubs, or gallops. PULMONARY: Chest is clear to auscultation, no wheezing or crackles. ABDOMEN: Soft, nontender, nondistended, normoactive bowel sounds. No palpable organomegaly. MUSCULOSKELETAL: No joint swelling or deformity. EXTREMITIES: No cyanosis, clubbing, or pedal edema. NEUROLOGICAL: Gross neurological examination did not reveal any focal deficits. SKIN: No rashes. Other medical problems and aspiration, prescription for to dictation history of present illness from yesterday Patient Condition at Discharge: Undetermined Plan - Discharge Summary Discharge Rx Participant: No New Discharge Prescriptions: New Loperamide HCl [Imodium A-D] 2 mg PO TID PRN #20 tablet PRN Reason: Diarrhea Azithromycin [Zithromax Tri-Yair] 500 mg PO DAILY 7 Days #7 tab Continue L.acidoph,Paracasei, B.lactis [Probiotic] 1 cap PO TID Calcium Carbonate [Tums] 1,000 mg PO TID PRN PRN Reason: Heartburn Vitamin B Complex 1 cap PO DAILY Ubidecarenone [Co Q-10] 100 mg PO DAILY Omeprazole 20 mg PO DAILY Krill Oil 500 mg PO DAILY Cholecalciferol [Vitamin D3 (25 Mcg = 1000 Iu)] 1,000 unit PO DAILY Magnesium 200 mg PO DAILY Discontinued Phytonadione [Vitamin K] 5 mg PO DAILY Niacin 500 mg PO DAILY amLODIPine BESYLATE [Norvasc] 2.5 mg PO DAILY Discharge Medication List Calcium Carbonate [Tums] 1,000 mg PO TID PRN 12/15/15 [History] L.acidoph,Paracasei, B.lactis [Probiotic] 1 cap PO TID 12/15/15 [History] Cholecalciferol [Vitamin D3 (25 Mcg = 1000 Iu)] 1,000 unit PO DAILY 06/25/19 [History] Krill Oil 500 mg PO DAILY 06/25/19 [History] Magnesium 200 mg PO DAILY 06/25/19 [History] Omeprazole 20 mg PO DAILY 06/25/19 [History] Ubidecarenone [Co Q-10] 100 mg PO DAILY 06/25/19 [History] Vitamin B Complex 1 cap PO DAILY 06/25/19 [History] Azithromycin [Zithromax Tri-Yair] 500 mg PO DAILY 7 Days #7 tab 06/27/19 [Rx] Loperamide HCl [Imodium A-D] 2 mg PO TID PRN #20 tablet 06/27/19 [Rx] Follow up Appointment(s)/Referral(s): Levi Stovall III, MD [Primary Care Provider] - 3 Days Discharge Disposition: HOME SELF-CARE
== END 2019-06-27 13:13 | disposition home or self-care (01) ==
LOC: EC 16:18 → 4MS4W 20:16
PROVIDERS: ADMIT Hospitalist; ATTEND Hospitalist
DX: R19.7 Diarrhea, unspecified (principal); E86.0 Dehydration; E87.2 Acidosis; R82.71 Bacteriuria; D72.829 Elevated white blood cell count, unspecified; R11.2 Nausea with vomiting, unspecified; E83.52 Hypercalcemia; I10 Essential (primary) hypertension; K76.0 Fatty (change of) liver, not elsewhere classified; K57.50 Diverticulosis of both small and large intestine without perforation or abscess without bleeding; E66.9 Obesity, unspecified; Z68.28 Body mass index [BMI] 28.0-28.9, adult; Z79.899 Other long term (current) drug therapy; Z85.820 Personal history of malignant melanoma of skin; Z90.49 Acquired absence of other specified parts of digestive tract; Z90.721 Acquired absence of ovaries, unilateral; Z90.711 Acquired absence of uterus with remaining cervical stump; Z87.891 Personal history of nicotine dependence; Z82.5 Family history of asthma and other chronic lower respiratory diseases; Z82.49 Family history of ischemic heart disease and other diseases of the circulatory system
CPT/HCPCS: 96376 ×2; 96361 ×3; 96365; 96375; 99285; 36415; 93005; 80053; 80048; 85652; 82550; 83605; 83615; 83735; 84100; 85025; 85027; 86140; 81001; 87040; 87207; 87324; 87177; 87209; 87045 ×2; 87046 ×2; 74177; G0378 ×3; J2405; J0456; C9113 ×3; Q9967

== ENCOUNTER → 2020-05-31 | Outpatient (CLI) | payer BC ==
--- NOTE | 2020-06-01 13:07 | MM ---
Reason for exam: screening (asymptomatic). Last mammogram was performed 1 year and 4 months ago. History: Patient has history of other cancer at age 35. Family history of breast cancer in grandmother. Benign US left CoreBiopsy of the left breast, January 31, 2007. Physical Findings: A clinical breast exam by your physician is recommended on an annual basis and results should be correlated with mammographic findings. MG Screening Mammo w CAD Bilateral CC and MLO view(s) were taken. Prior study comparison: February 04, 2019, bilateral MG screening mammo w CAD. January 29, 2018, bilateral MG screening mammo w CAD. The breast tissue is heterogeneously dense. This may lower the sensitivity of mammography. Benign appearing calcifications in the left breast. Previous mammotome biopsy in the left breast. No significant changes when compared with prior studies. ASSESSMENT: Benign, BI-RAD 2 RECOMMENDATION: Routine screening mammogram of both breasts in 1 year.
== END | disposition home or self-care (01) ==
LOC: RADMAMWWP 10:53
PROVIDERS: ATTEND Family Medicine
DX: Z12.31 Encounter for screening mammogram for malignant neoplasm of breast (principal)
CPT/HCPCS: 77067

== ENCOUNTER → 2021-08-28 | Outpatient (CLI) | payer BC ==
--- NOTE | 2021-08-29 09:05 | MM ---
Reason for exam: screening (asymptomatic). Last mammogram was performed 1 year and 3 months ago. History: Patient is postmenopausal and has history of other cancer at age 35. Family history of breast cancer in grandmother. Benign US left CoreBiopsy of the left breast, January 31, 2007. Physical Findings: A clinical breast exam by your physician is recommended on an annual basis and results should be correlated with mammographic findings. MG Screening Mammo w CAD Bilateral CC and MLO view(s) were taken. Prior study comparison: May 31, 2020, bilateral MG screening mammo w CAD. February 04, 2019, bilateral MG screening mammo w CAD. The breast tissue is heterogeneously dense. This may lower the sensitivity of mammography. Previous mammotome biopsy in the left breast. There is no discrete abnormality. ASSESSMENT: Benign, BI-RAD 2 RECOMMENDATION: Routine screening mammogram of both breasts in 1 year.
== END | disposition home or self-care (01) ==
LOC: RADMAMWWP 07:55
PROVIDERS: ATTEND Family Medicine
DX: Z12.31 Encounter for screening mammogram for malignant neoplasm of breast (principal)
CPT/HCPCS: 77067

== ENCOUNTER → 2025-03-30 | Outpatient (CLI) | payer MEDICARE ==
--- NOTE | 2025-03-30 08:25 | MM ---
Reason for Exam: Screening (asymptomatic). Last mammogram was performed 2 year(s) and 4 month(s) ago. Patient History: Menarche at age 14. First Full-Term at age 17. Left ovary removed at age 17. Hysterectomy at age 46. Postmenopausal. Patient has history of breast feeding. Other cancer, age 35. 01/31/2007, Benign Core Biopsy on the left side. Maternal grandmother had breast cancer. Risk Values: Felicitas 5 year model risk: 1.3%. NCI Lifetime model risk: 4.9%. Prior Study Comparison: 05/31/2020 Bilateral Screening Mammogram, [facility]. 08/28/2021 Bilateral Screening Mammogram, [facility]. 11/29/2022 Bilateral MG screening mammo w CAD, [facility]. Tissue Density: There are scattered areas of fibroglandular density. Findings: Analyzed By CAD. Mammotome biopsy clip in the left breast is redemonstrated. Stable focal asymmetric tissue medially in the left breast. Benign-appearing bilateral axillary lymph nodes are redemonstrated. There is no suspicious group of microcalcifications or new suspicious mass in either breast. Overall Assessment: Negative, BI-RAD 1 Management: Screening Mammogram of both breasts in 1 year. . Patient should continue monthly self-breast exams. A clinical breast exam by your physician is recommended on an annual basis. This exam should not preclude additional follow-up of suspicious palpable abnormalities. Note on Felicitas scores and lifetime risk: 1. A Felicitas score greater than 3% is considered moderate risk. If this is the case, consider specialist referral to assess eligibility for a risk reducing agent. 2. If overall lifetime risk for the development of breast cancer is 20% or higher, the patient may qualify for future screening with alternating mammogram and breast MRI. [facility], , 03/30/2025 8:22 AM. Electronically signed and approved by: Adal Lawrence M.D.
== END | disposition home or self-care (01) ==
LOC: RADMAMWWP 07:25
PROVIDERS: ATTEND Internal Medicine
DX: Z12.31 Encounter for screening mammogram for malignant neoplasm of breast (principal); R92.323 Mammographic fibroglandular density, bilateral breasts; Z78.0 Asymptomatic menopausal state; Z80.3 Family history of malignant neoplasm of breast
CPT/HCPCS: 77063; 77067